=== PATIENT | male | born 1945 | race Caucasian/White ===

== ENCOUNTER 2016-10-01 09:43 | Observation (INO) ==
[2016-10-01] MEDS ORDERED: NITROGLYCERIN SL 0.4 MG TABLET SL PRN (10:03)
[2016-10-01] MEDS ORDERED: ENOXAPARIN 100 MG/ML SYRINGE SUBCUT STA (10:03)
--- NOTE | 2016-10-01 10:06 | EKG Report ---
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
[2016-10-01] MEDS ORDERED: ENOXAPARIN 80 MG/0.8 ML SYRINGE SUBCUT ONE (10:17)
[2016-10-01 10:24] LABS: Basophils % 0.3 % (0.0-0.8); Eosinophils % 0.1 % (0.00-10.9); Hemoglobin 14.9 GM/DL (14.0-18.0); Immature Granulocytes % 0.4 %; Immature Granulocytes Absolute 0.03 #; Lymphocytes % 13.1 % (21.2-54.2); Mean Corpuscular HGB Conc 35.5 GM/DL (32-36); Mean Corpuscular Hemoglobin 33 PG (27-34); Mean Corpuscular Volume 91.7 FL (87-102); Mean Platelet Volume 9.5 FL (9.6-12.0); Monocytes # 0.6 10*3/uL (0.11-0.8); Monocytes % 7.3 % (1.7-12.7); Neutrophils # 5.9 10*3/uL (1.4-7.4); Neutrophils % 78.8 % (38.7-73.9); Platelet Count 181 T/CUMM (130-400); Red Blood Count 4.58 MC/CUMM (3.8-5.5); Red Cell Distribution Width 12.6 % (9.3-17.3); White Blood Count 7.5 T/CUMM (4-12)
--- NOTE | 2016-10-01 10:27 | XRay Report ---
History: Chest pain Date: 10/01/2016 Study: Chest x-ray PA and lateral Comparison exam: July 25, 2007 The cardiac silhouette is not enlarged. There is no mediastinal mass. There has been previous median sternotomy. The pulmonary vasculature is not engorged. The lungs are well-expanded and clear. There is no pleural effusion. There has been previous anterior cervical fusion. The osseous structures are unchanged. Impression: No acute cardiopulmonary process compared to the previous study PROCEDURE INTERPRETED AT [facility] DEPARTMENT OF RADIOLOGY Final Report Signed by: Dr. Julianne Ng
[2016-10-01 11:04] LABS: Albumin 3.9 G/DL (3.4-5.0); Bilirubin,Total 0.5 MG/DL (0.2-1.0); Calcium 8.6 MG/DL (8.5-10.1); Magnesium 2.3 MG/DL (1.8-2.4); Potassium 4.5 MMOL/L (3.5-5.1); Total Protein 6.8 G/DL (6.4-8.3)
[2016-10-01] MEDS ORDERED: NITROGLYCERIN 2% OINT 1 INCH/GM PACK TOP STA (11:07)
[2016-10-01] MEDS ORDERED: NITROGLYCERIN 2% OINT 1 INCH/GM PACK TOP ONE (11:08)
[2016-10-01 11:24] LABS: Apearance,Urine CLEAR (Clear); Bacteria,Urine Occasional /HPF (Few); Bilirubin,Urine Negative (Negative); Blood, Urine Negative (Negative); Glucose,Urine (UA) >=500 mg/dL (Negative); Ketones,Urine Negative (Negative); Mucus,Urine Occasional /LPF (Occasional); Nitrite,Urine Negative (Negative); Protein,Urine Negative; RBC,Urine 1 /HPF (0-4); Sperm,Urine Occasional /HPF (Negative); Urine Color Yellow (Yellow); Urine Specific Gravity 1.021 (1.001-1.035); Urine Urobilinogen < 2.0 EU/DL (0.2-1.0); WBC,Urine 1 /HPF (0-6)
[2016-10-01] MEDS ORDERED: MAGNESIUM SULF RIDER 4 GM in PREMIX 1 EACH IV PRN ×2 (11:27→12:12)
[2016-10-01] MEDS ORDERED: MAGNESIUM SULF RIDER 2 GM in PREMIX 1 EACH IV PRN ×2 (11:27→12:12)
--- NOTE | 2016-10-01 11:30 | Emergency Department Note ---
Ravi Tuttle Brittany, am scribing for, and in the presence of, Jose Juan Iniguez MD 10:09. Hira Tuttle Phillip K, MD, personally performed the services described in this documentation, ascribed by Stephany Rodrigues in my presence, and it is both accurate and complete . Arrival - Arrival Chief Complaint: Chest Pain Stated Complaint: HEART ISSUES/DULL ACHE SENSATION ED Nursing Triage Note: C/o left side chest pressure/ache and indigestion-onset three days ago. Denies SOB. +nausea. Mode of Arrival: Ambulatory Limitations: No Limitations Source: Patient - History of Present Illness HPI Narrative: This is a 70 y/o white male,who presents to the ED with c/o CP which started 3 days ago. He describes the pain as a "chest cold" kind of type/ kind of like indigestion. . He reports the chest pain comes and goes. He reports chills on and off as well as a subjective low grade fever. He states he has been nauseated but has not vomited. He denies any diaphoresis. His states pt has been confused for the past month, more than normal. Pt reports body aches now in the ED. Pt has no other complaints/pain in the ED at this time. Pt has a PMHx of CAD, VA, and dyslipidemia. Pt has had a cardiac cath with no stents and a triple bypass in 2007. Pt has a family medical hx of heart disease. Pt denies a social Hx. Pt's states his last treadmill was in the past year. Onset (ago): day(s) (Started 3 days ago) Consistency: constant Severity: moderate Quality: other (Indegsetion type of pain ) Allergies/Adverse Reactions: Allergies Allergy/AdvReac Type Severity Reaction Status Date / Time No Known Allergies Allergy Verified 10/01/16 09:50 Home Medications: Home Medications Medication Instructions Recorded Confirmed Type Aspirin EC Tab 325 mg PO DAILY 10/01/16 10/01/16 History [place]-3/Dha/Epa/Fish Oil [Fish Oil 1 each PO DAILY 10/01/16 10/01/16 History 1,000 mg Softgel] Rosuvastatin [Crestor] 20 mg PO DAILY 10/01/16 10/01/16 History Ubidecarenone [Co Q-10] 200 mg PO DAILY 10/01/16 10/01/16 History Review of System - Review of System 12 point system: reviewed and no additional remarkable complaints except as stated - Review of System Constitutional: Present: chills, fever (Subjective low grade fever), other ( Body aches) Cardiovascular: Present: chest pain Gastrointestinal: Present: nausea. Absent: vomiting Neurological: Present: confusion Medical,Surgical,& Family Hx - Medical History Cardio: History of: CAD, VA (NSTEMI) Endocrine: History of: Dyslipidemia - Surgical History Cardiac Surgeries: Sugical HX of: Cardiac Catheterization, Cardiac Surgery ( triple bypass 2007) - Family History Family History: Reports;: Family Heart Disease - Social History Smoking Status: Never smoker Frequency of Alcohol Use: None Type of Drug Use: None Exam Vital Signs: Vital Signs Temperature 98.2 F 10/01/16 10:13 Pulse Rate 75 10/01/16 10:13 Respiratory Rate 18 10/01/16 10:13 Blood Pressure 163/98 10/01/16 10:13 O2 Sat by Pulse Oximetry 98 10/01/16 09:46 - General General appearance: alert, in no apparent distress - Head Head exam: Present: atraumatic, normocephalic, normal inspection - Eye Eye exam: Present: normal appearance, PERRL, EOMI. Absent: nystagmus, miosis, mydriasis - ENT ENT exam: Present: normal exam, normal oropharynx, mucous membranes moist, TM's normal bilaterally, normal external ear exam - Neck Neck exam: Present: normal inspection, full ROM, trachea midline. Absent: tenderness, meningismus, lymphadenopathy, thyromegaly - Chest Chest inspection: Present: normal inspection, symmetric chest wall rise. Absent : tenderness, rash, abscess - Respiratory Respiratory exam: Present: normal lung sounds bilaterally. Absent: rales, respiratory distress, rhonchi, stridor, wheezes - Cardiovascular Cardiovascular exam: Present: regular rate, normal rhythm, normal heart sounds. Absent: murmur, rubs, gallop, clicks, JVD - Abdominal Exam Abdominal exam: Present: soft, normal bowel sounds. Absent: distention, tenderness, guarding, rebound, rigidity - Rectal Exam Rectal exam: Present: deferred - Extremities Exam Extremities exam: Present: normal inspection, full ROM, normal capillary refill. Absent: tenderness, pedal edema, joint swelling, calf tenderness - Back Exam Back exam: Present: normal inspection, full ROM. Absent: tenderness, muscle spasm, rashes - Neurological Exam Neurological exam: Present: alert, oriented X3, CN II-XII intact. Absent: motor sensory deficit - Psychiatric Psychiatric exam: Present: normal affect, normal mood, flat affect. Absent: depressed, agitated, anxious, manic - Skin Skin exam: Present: warm, dry, intact, normal color. Absent: rash, cyanosis, diaphoresis, erythema, pallor, mottled Results - Labs CBC & BMP: 10/01/16 10:07 10/01/16 10:07 Lab Results: I have reviewed the patients labs Labs: Laboratory Tests 10/01/16 10:07 WBC 7.5 RBC 4.58 Hgb 14.9 Hct 42.0 MCV 91.7 MCH 33 MCHC 35.5 RDW 12.6 Plt Count 181 MPV 9.5 L Neut % (Auto) 78.8 H Lymph % (Auto) 13.1 L [place] % (Auto) 7.3 Eos % (Auto) 0.1 Baso % (Auto) 0.3 Neut # (Auto) 5.9 Lymph # (Auto) 1.0 L [place] # (Auto) 0.6 Eos # (Auto) 0.0 Baso # (Auto) 0.0 Immature Gran % 0.4 Nucleated RBC % 0.0 Immature Gran # 0.03 Nucleated RBCs # 0.00 - EKG EKG results: interpreted by ERMD, sinus rhythm (No ST elevation noted) - Diagnostic Findings Procedure: Chest x-ray: report reviewed by me (Nothing acute when compared to the previous study. ), CT: report reviewed by me (CT head scan is negative) Disposition Clinical Impression: Chest pain, Confusion, Hyperglycemia Clinical Impression: (Ruled Out): No ST elevation noted. Case discussed with: patient, patient's family Disposition: Still a Patient Condition: Guarded Additional Instructions: Admit to Dr. Brown
--- NOTE | 2016-10-01 12:05 | CT Report ---
History: Confusion Date: 10/01/2016 Study: CT head without contrast Comparison exam: January 09, [address] sections were obtained through the head without IV contrast. This CT exam was performed using one or more the following dose reduction techniques: Automated exposure control, adjustment of the MA and/or KV according to patient size, or use of iterative reconstruction technique. The ventricles are midline in position without evidence of hydrocephalus. There is no mass or parenchymal hemorrhage. There is no gross CT evidence of acute cortical stroke. There is no extra-axial hematoma. There is a small amount of ill-defined low density in the periventricular white matter without mass effect compatible with changes of small vessel disease. There is no acute abnormality of the calvarium. Impression: No acute intracranial process. No adverse interval change PROCEDURE INTERPRETED AT [facility] DEPARTMENT OF RADIOLOGY Final Report Signed by: Dr. Julianne Ng
[2016-10-01] MEDS ORDERED: DOCUSATE SODIUM 100 MG CAPSULE PO PRN (12:12)
[2016-10-01] MEDS ORDERED: traZODone 50 MG TABLET PO PRN (12:12)
[2016-10-01] MEDS ORDERED: ACETAMINOPHEN 325 MG TABLET PO PRN (12:12)
[2016-10-01] MEDS ORDERED: ONDANSETRON 4 MG/2 ML VIAL IV PRN (12:12)
[2016-10-01] MEDS ORDERED: BISACODYL 5 MG TABLET PO PRN (12:12)
[2016-10-01] MEDS ORDERED: POTASSIUM CHLORIDE RIDER 20 MEQ in PREMIX 1 EACH IV PRN (12:16)
[2016-10-01] MEDS ORDERED: POTASSIUM CHLORIDE RIDER 10 MEQ in PREMIX 1 EACH IV PRN (12:16)
[2016-10-01] MEDS ORDERED: ACETAMINOPHEN 500 MG TABLET PO STA (12:34)
[2016-10-01] MEDS ORDERED: ACETAMINOPHEN 500 MG TABLET ONE (12:34)
--- NOTE | 2016-10-01 13:21 | EKG Report ---
Stationary ECG Study [facility] ER Test Date: 10/01/2016 1:20:22 PM Pat Name: ORTEGA REAL [facility] Gender: M Operating Room Orderly: : 1945 Requested by: Jose Juan Nina Order Number: [id number] Reading MD: SABRINA MARINA Intervals [place] Rate: 73 P: 55 SC: 182 QRS: 57 QRSD: 91 T: 62 QT: 384 QTc: 409 Interpretive Statements SINUS RHYTHM LEFT ATRIAL ABNORMALITY Electronically Signed On 10-03-16 12:15:36 CDT by SABRINA MARINA [email or web address]
[2016-10-01 14:19] LABS: Troponin I Only < 0.015 NG/ML (0.00-0.045)
[2016-10-01] MEDS: OMEGA 3 ACID ETHYL ESTERS 1 GM CAPSULE PO SCH ×2 (14:37→15:12)
[2016-10-01] MEDS: SODIUM CHLORIDE 0.45% 1,000 ML IV SCH (14:37)
[2016-10-01] MEDS: ROSUVASTATIN 20 MG TABLET PO SCH ×2 (14:37→15:11)
[2016-10-01] MEDS: CARVEDILOL 3.125 MG TABLET PO SCH ×2 (14:57→20:58)
--- NOTE | 2016-10-01 15:08 | Cardiology History & Physical ---
<Niyah Alexander - Last Filed: 10/01/16 14:49> Assessment and Plan - Time spent with patient Time spent with patient: Greater than 30 minutes History of Present Illness Chief complaint: chest discomfort History of present illness: [employer] Instructor: Dr. Collazo Mr. Jensen is a 70 year old male with known history of coronary artery disease, routinely followed by Dr. Collazo. Cardiac risk factors include: Known CAD, dyslipidemia, family history of coronary artery disease (father) and hypertension. Lifetime non-smoker. Patient has past medical history of previous [place] (silent). Patient is status post coronary artery bypass grafting in 2007 with WALTON to LAD, SVG to circumflex and SVG to diagonal. Patient was just recently seen in the cardiology clinic by Dr. Collazo June 2016. At that time, he underwent GXT stress test and echocardiogram. He tolerated stress testing well and completed 4 minutes and 51 seconds. 10.5 metastases. Reached 91% of maximum predicted heart rate. Heart rate and blood pressure response was normal. He did not develop any symptoms during the procedure. No ST segment changes or arrhythmias were noted. Unable to locate echocardiogram report. Of note, per Dr. Collazo's note prior to his bypass surgery he was totally asymptomatic with the exception of just a little episode of shortness of breath one time. He continues to be extremely active. Walks 2 miles and then is able to jog 12:45 half of a mile. He works in his yard on a regular basis and is able to perform activities without limitations. Patient presented to [facility] today seeking further evaluation. He reports that he just woke up this morning and "did not feel right." He reports that he has been at the [facility] for the last several days. He has had intermittent episodes of "feeling flushed in his chest." He denies jatin chest pain, heaviness and tightness. However, he reports that he has never experienced chest pain. Prior to his bypass surgery the only symptom that he experienced was brief shortness of breath. Unable to identify if he was short of breath. While obtaining a review of systems, patient suddenly became extremely anxious because he could not remember why he came to the hospital. His is at the bedside. Majority of information obtained from her. She reports that he has been intermittently confused over the past several weeks. This comes and goes and he is aware of his confusion. She reports that he commonly forgets which cabinet the plates, cups and silverware are located in. While carrying on on a conversation, he he randomly says words that do not fit into the conversation. Patient then became very anxious and reporting that something was bad wrong with him. However, he could not tell me what was wrong. His confirms that he has complained of occasional headaches. His blood pressure has been uncontrolled as well. He is admitted to the telemetry unit. Patient was seen and examined on the telemetry unit. He is without chest pain, heaviness and tightness. Cardiac biomarkers have been negative 2. EKG is unchanged from previous tracings. Patient's chief complaint seems to be change in his mental status. At this point, we will order MRI brain carotid ultrasound , blood cultures and UA. Consult Dr. Lara. Await additional recommendations from Dr. Brown. ASSESSMENT/PLAN CHANGE IN MENTAL STATUS - Head CT negative. Will order MRI brain carotid ultrasound, blood cultures and UA. Consult Dr. Lara. HISTORY OF CAD - Patient has history of CAD with CABG in 2007. WALTON to LAD, SVG to circumflex and SVG to diagonal. Patient undergoes exercise stress test yearly. Last stress test performed June 2016. He tolerated that well without any ST segment changes concerning for ischemia. Will cycle cardiac biomarkers and EKGs. Echocardiogram pending. HYPERTENSION - Beta-donato has been initiated. Will monitor blood pressure and adjust accordingly. HYPERLIPIDEMIA - Continue lipid-lowering agent. Lipid panel in a.m. Home Medications Medication Instructions Recorded Confirmed Type Aspirin EC Tab 325 mg PO DAILY 10/01/16 10/01/16 History [place]-3/Dha/Epa/Fish Oil [Fish Oil 1 each PO DAILY 10/01/16 10/01/16 History 1,000 mg Softgel] Rosuvastatin [Crestor] 20 mg PO DAILY 10/01/16 10/01/16 History Ubidecarenone [Co Q-10] 200 mg PO DAILY 10/01/16 10/01/16 History Allergies Allergy/AdvReac Type Severity Reaction Status Date / Time No Known Allergies Allergy Verified 10/01/16 09:50 ROS unobtainable: due to dementia Medical,Surgical,& Family Hx - Medical History Cardio: History of: CAD, WI (NSTEMI) Endocrine: History of: Dyslipidemia - Surgical History Cardiac Surgeries: Sugical HX of: Cardiac Catheterization, Cardiac Surgery ( triple bypass 2007) - Family History Family History: Reports;: Family Heart Disease - Social History Smoking Status: Never smoker Frequency of Alcohol Use: None Type of Drug Use: None Marital Status: Lives With:: Spouse Functional capacity: independent ambulation Cardiology Physical Exam - Constitutional Vitals: Vital Signs Temp Pulse Resp BP Pulse Ox 98.1 F 66 17 142/74 97 10/01/16 14:28 10/01/16 14:28 10/01/16 14:28 10/01/16 14:28 10/01/16 14:28 Intake and Output 09/30/16 10/01/16 10/01/16 22:59 06:59 14:59 Other: Weight 182 lb Patient Weight 10/02/16 06:59 Weight 182 lb Exam: General: Appears well with no apparent distress. Pleasant and cooperative. Appears comfortable. HEENT: PERRL, normocephalic, atraumatic. Mucous membranes moist. No jaundice noted. Conjunctiva moist and clear, sclerae anicteric Neck: No JVD/HJR, no thyromegaly or lymphadenopathy noted. No carotid bruit appreciated Cardiac: Regular rate and rhythm. No murmur rub or gallop. Lungs: Clear to auscultation without accessory muscle use to assist the respiratory pattern. Not requiring oxygen. Abdomen: Soft, bowel sounds normoactive. Nontender and nondistended. No abdominal bruit or thrill noted. No masses noted. Extremities: No clubbing, cyanosis noted. No edema noted. Upper extremity pulses 2+. Lower extremity pulses 2+. Capillary refill less than 3 seconds. Skin: No unusual lesions or rashes. No skin breakdown appreciated. Neuro: Awake, alert and oriented 3. Moves all extremities well without hemiparesis or paralysis. No essential tremor is appreciated. Result/EKG - Labs CBC & BMP: 10/01/16 10:07 10/01/16 10:07 Lab Results: I have reviewed the past 24 hour labs Labs: Laboratory Results - last 24 hr 10/01/16 10/01/16 10/01/16 10:07 10:07 10:07 WBC 7.5 RBC 4.58 Hgb 14.9 Hct 42.0 MCV 91.7 MCH 33 MCHC 35.5 RDW 12.6 Plt Count 181 MPV 9.5 L Neut % (Auto) 78.8 H Lymph % (Auto) 13.1 L [place] % (Auto) 7.3 Eos % (Auto) 0.1 Baso % (Auto) 0.3 Neut # (Auto) 5.9 Lymph # (Auto) 1.0 L [place] # (Auto) 0.6 Eos # (Auto) 0.0 Baso # (Auto) 0.0 Immature Gran % 0.4 Nucleated RBC % 0.0 Immature Gran # 0.03 Nucleated RBCs # 0.00 Sodium 136 Potassium 4.5 Chloride 98 Carbon Dioxide 33 H Anion Gap 9.5 BUN 14 Creatinine 1.00 GFR Calculation 92 BUN/Creatinine Ratio 14.00 Glucose 199 H Calculated Osmolality 278.0 Calcium 8.6 Magnesium 2.3 Total Bilirubin 0.50 AST 15 ALT 18 Alkaline Phosphatase 55 Total Creatine Kinase CK-MB (CK-2) Troponin I Total Protein 6.8 Albumin 3.9 Globulin 2.9 Albumin/Globulin Ratio 1.3 Lipase 184.0 Free T4 TSH 3rd Generation Urine Color Yellow Urine Appearance Clear Urine pH 6.0 Ur Specific [place] 1.021 Urine Protein Negative Urine Glucose (UA) >=500 Urine Ketones Negative Urine Blood Negative Urine Nitrate Negative Urine Bilirubin Negative Urine Urobilinogen < 2.0 H Urine Leukocytes Negative Urine RBC 1 Urine WBC 1 Urine Bacteria Occasional Urine Mucus Occasional Urine Sperm Occasional Ur Culture Indicated? Not indicated 10/01/16 10/01/16 10/01/16 10:07 10:07 10:07 WBC RBC Hgb Hct MCV MCH MCHC RDW Plt Count MPV Neut % (Auto) Lymph % (Auto) [place] % (Auto) Eos % (Auto) Baso % (Auto) Neut # (Auto) Lymph # (Auto) [place] # (Auto) Eos # (Auto) Baso # (Auto) Immature Gran % Nucleated RBC % Immature Gran # Nucleated RBCs # Sodium Potassium Chloride Carbon Dioxide Anion Gap BUN Creatinine GFR Calculation BUN/Creatinine Ratio Glucose Calculated Osmolality Calcium Magnesium Total Bilirubin AST ALT Alkaline Phosphatase Total Creatine Kinase CK-MB (CK-2) Troponin I 0.017 Total Protein Albumin Globulin Albumin/Globulin Ratio Lipase Free T4 0.90 TSH 3rd Generation 5.280 H Urine Color Urine Appearance Urine pH Ur Specific [place] Urine Protein Urine Glucose (UA) Urine Ketones Urine Blood Urine Nitrate Urine Bilirubin Urine Urobilinogen Urine Leukocytes Urine RBC Urine WBC Urine Bacteria Urine Mucus Urine Sperm Ur Culture Indicated? 10/01/16 13:30 WBC RBC Hgb Hct MCV MCH MCHC RDW Plt Count MPV Neut % (Auto) Lymph % (Auto) [place] % (Auto) Eos % (Auto) Baso % (Auto) Neut # (Auto) Lymph # (Auto) [place] # (Auto) Eos # (Auto) Baso # (Auto) Immature Gran % Nucleated RBC % Immature Gran # Nucleated RBCs # Sodium Potassium Chloride Carbon Dioxide Anion Gap BUN Creatinine GFR Calculation BUN/Creatinine Ratio Glucose Calculated Osmolality Calcium Magnesium Total Bilirubin AST ALT Alkaline Phosphatase Total Creatine Kinase 87 CK-MB (CK-2) 3.1 Troponin I < 0.015 Total Protein Albumin Globulin Albumin/Globulin Ratio Lipase Free T4 TSH 3rd Generation Urine Color Urine Appearance Urine pH Ur Specific [place] Urine Protein Urine Glucose (UA) Urine Ketones Urine Blood Urine Nitrate Urine Bilirubin Urine Urobilinogen Urine Leukocytes Urine RBC Urine WBC Urine Bacteria Urine Mucus Urine Sperm Ur Culture Indicated? <StephaniePapo - Last Filed: 10/01/16 15:39> History of Present Illness History of present illness: Cardiology addendum. Patient examined chart reviewed and discussed with nurse Moraima Rose RN 70-year-old but Angelica has had intermittent confusion for about 2 weeks according to his Argelia Olga Morales who is a nurse in the outpatient center. Today the patient cannot express his words. He did not know the president or the month. CT the head was negative for stroke. He has no motor deficits. Chest x-ray is negative. Status post 3 vessel CABG in 2007 with WALTON graft to LAD, vein graft to circumflex and vein graft to diagonal. He had a normal treadmill stress test June 25, 2016. He completed 10.5 metastases and a peak heart of 137 without chest pain or EKG changes or arrhythmias. The patient stopped his aspirin 1 week ago because of nausea. He also takes Crestor 20 mg daily and fish oil. No history of hypertension or diabetes. No prior history of stroke. No history of peptic ulcer disease. He denies melena. 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 He walks at least 3 times per week for 30 minutes. Impression Suspect stroke. MRI of the brain Carotid duplex Echo Doppler Consult Dr. Lara Discussed with [facility] Physical Exam - Constitutional Vitals: Vital Signs Temp Pulse Resp BP Pulse Ox 98.3 F 77 20 164/95 100 10/01/16 15:13 10/01/16 15:13 10/01/16 15:13 10/01/16 15:13 10/01/16 15:13 Intake and Output 09/30/16 10/01/16 10/01/16 23:59 07:59 15:59 Other: Weight 82.554 kg Patient Weight 10/01/16 23:59 Weight 82.554 kg Result/EKG - Labs CBC & BMP: 10/01/16 10:07 10/01/16 10:07 Labs: Laboratory Results - last 24 hr 10/01/16 10/01/16 10/01/16 10:07 10:07 10:07 WBC 7.5 RBC 4.58 Hgb 14.9 Hct 42.0 MCV 91.7 MCH 33 MCHC 35.5 RDW 12.6 Plt Count 181 MPV 9.5 L Neut % (Auto) 78.8 H Lymph % (Auto) 13.1 L [place] % (Auto) 7.3 Eos % (Auto) 0.1 Baso % (Auto) 0.3 Neut # (Auto) 5.9 Lymph # (Auto) 1.0 L [place] # (Auto) 0.6 Eos # (Auto) 0.0 Baso # (Auto) 0.0 Immature Gran % 0.4 Nucleated RBC % 0.0 Immature Gran # 0.03 Nucleated RBCs # 0.00 Sodium 136 Potassium 4.5 Chloride 98 Carbon Dioxide 33 H Anion Gap 9.5 BUN 14 Creatinine 1.00 GFR Calculation 92 BUN/Creatinine Ratio 14.00 Glucose 199 H Calculated Osmolality 278.0 Calcium 8.6 Magnesium 2.3 Total Bilirubin 0.50 AST 15 ALT 18 Alkaline Phosphatase 55 Total Creatine Kinase CK-MB (CK-2) Troponin I Total Protein 6.8 Albumin 3.9 Globulin 2.9 Albumin/Globulin Ratio 1.3 Lipase 184.0 Free T4 TSH 3rd Generation Urine Color Yellow Urine Appearance Clear Urine pH 6.0 Ur Specific [place] 1.021 Urine Protein Negative Urine Glucose (UA) >=500 Urine Ketones Negative Urine Blood Negative Urine Nitrate Negative Urine Bilirubin Negative Urine Urobilinogen < 2.0 H Urine Leukocytes Negative Urine RBC 1 Urine WBC 1 Urine Bacteria Occasional Urine Mucus Occasional Urine Sperm Occasional Ur Culture Indicated? Not indicated 10/01/16 10/01/16 10/01/16 10:07 10:07 10:07 WBC RBC Hgb Hct MCV MCH MCHC RDW Plt Count MPV Neut % (Auto) Lymph % (Auto) [place] % (Auto) Eos % (Auto) Baso % (Auto) Neut # (Auto) Lymph # (Auto) [place] # (Auto) Eos # (Auto) Baso # (Auto) Immature Gran % Nucleated RBC % Immature Gran # Nucleated RBCs # Sodium Potassium Chloride Carbon Dioxide Anion Gap BUN Creatinine GFR Calculation BUN/Creatinine Ratio Glucose Calculated Osmolality Calcium Magnesium Total Bilirubin AST ALT Alkaline Phosphatase Total Creatine Kinase CK-MB (CK-2) Troponin I 0.017 Total Protein Albumin Globulin Albumin/Globulin Ratio Lipase Free T4 0.90 TSH 3rd Generation 5.280 H Urine Color Urine Appearance Urine pH Ur Specific [place] Urine Protein Urine Glucose (UA) Urine Ketones Urine Blood Urine Nitrate Urine Bilirubin Urine Urobilinogen Urine Leukocytes Urine RBC Urine WBC Urine Bacteria Urine Mucus Urine Sperm Ur Culture Indicated? 10/01/16 13:30 WBC RBC Hgb Hct MCV MCH MCHC RDW Plt Count MPV Neut % (Auto) Lymph % (Auto) [place] % (Auto) Eos % (Auto) Baso % (Auto) Neut # (Auto) Lymph # (Auto) [place] # (Auto) Eos # (Auto) Baso # (Auto) Immature Gran % Nucleated RBC % Immature Gran # Nucleated RBCs # Sodium Potassium Chloride Carbon Dioxide Anion Gap BUN Creatinine GFR Calculation BUN/Creatinine Ratio Glucose Calculated Osmolality Calcium Magnesium Total Bilirubin AST ALT Alkaline Phosphatase Total Creatine Kinase 87 CK-MB (CK-2) 3.1 Troponin I < 0.015 Total Protein Albumin Globulin Albumin/Globulin Ratio Lipase Free T4 TSH 3rd Generation Urine Color Urine Appearance Urine pH Ur Specific [place] Urine Protein Urine Glucose (UA) Urine Ketones Urine Blood Urine Nitrate Urine Bilirubin Urine Urobilinogen Urine Leukocytes Urine RBC Urine WBC Urine Bacteria Urine Mucus Urine Sperm Ur Culture Indicated?
--- NOTE | 2016-10-01 16:17 | Neurology Consult Note ---
History of Present Illness History of present illness: Mr. Jensen is a 70 year old right-handed white gentleman with past medical history significant for coronary artery disease routinely followed by Dr. Collazo, dyslipidemia, family history of coronary artery disease (father) and hypertension, previous ND (silent), status post coronary artery bypass grafting in 2007 with. Patient was just recently seen in the cardiology clinic by Dr. Collazo June 2016. At that time, he underwent GXT stress test and echocardiogram. He tolerated stress testing well. Patient presented to [facility] today seeking further evaluation for confusion and difficulty in expressing himself. He reports that he just woke up this morning and "did not feel right." He reports that he has been at the [facility] for the last several days. He has had intermittent episodes of "feeling flushed in his chest." His is at the bedside and majority of information obtained from her. She reports that he has been intermittently confused over the past several weeks. This comes and goes and he is aware of his confusion. She reports that he commonly forgets which cabinet the plates, cups and silverware are located in. While carrying on on a conversation, he he randomly says words that do not fit into the conversation. Patient then became very anxious and reporting that something was bad wrong with him. However, he could not tell me what was wrong. His confirms that he has complained of occasional headaches. His blood pressure has been uncontrolled as well. CT of the head is unremarkable. Home Medications Medication Instructions Recorded Confirmed Type Aspirin EC Tab 325 mg PO DAILY 10/01/16 10/01/16 History Nunn-3/Dha/Epa/Fish Oil [Fish Oil 1 each PO DAILY 10/01/16 10/01/16 History 1,000 mg Softgel] Rosuvastatin [Crestor] 20 mg PO DAILY 10/01/16 10/01/16 History Ubidecarenone [Co Q-10] 200 mg PO DAILY 10/01/16 10/01/16 History Allergies Allergy/AdvReac Type Severity Reaction Status Date / Time No Known Allergies Allergy Verified 10/01/16 09:50 12 point system: reviewed and no additional remarkable complaints except as stated Medical,Surgical,& Family Hx - Medical History Cardio: History of: CAD, ND (NSTEMI) Endocrine: History of: Dyslipidemia - Surgical History Cardiac Surgeries: Sugical HX of: Cardiac Catheterization, Cardiac Surgery ( triple bypass 2007) - Family History Family History: Reports;: Family Heart Disease - Social History Smoking Status: Never smoker Frequency of Alcohol Use: None Type of Drug Use: None Exam - Constitutional Vitals: Period Temp Pulse Resp BP Sys/Friedman Pulse Ox Last 24 Hr 98.1 F-98.3 F 66-77 17-20 142-164/74-98 97-100 Exam: GENERAL: Patient is in no acute distress. NECK: Neck is supple. There is no JVD. No carotid bruits present. No thyroid masses. CVS: First and second heart sounds are normal. There is no S3 present. Regular rate and rhythm. RESPIRATORY: Lungs are clear to auscultation without any rales or rhonchi. ABDOMEN: Soft and non-tender. Bowel sounds are present. There is no hepatosplenomegaly. EXT: There is no palpable edema. Peripheral pulses are present. Skin: No rashes Central Nervous system: General: Alert, awake and Oriented x 3 Speech: Fluent Comprehension: Fair. Some issue with comprehension Facial expressions: Normal Cranial Nerves: CN1/Olfactory: Normal CN II/ Optic: Normal, Visual Smith unreliable CN III, and : NIKKI & EOMI CN V: Normal & intact CN VII: face is symmetric CNVIII: Normal CN XI/X/XI/XII: Intact and Normal Motor: Bulk and Tone is normal. Strength in the right 5/5 Strength in the left 5/5 Sensory: Grossly intact for all the modalities of PP, LT and temp sense Reflexes: 1+ and symmetrical Cerebellar function: Normal finger to nose and heel to fierro testing. Toes: Equivocal Gait: Normal heel to heel and toe to toe and tandem walk. Results - Labs CBC & BMP: 10/01/16 10:07 10/01/16 10:07 Assessment and Plan (1) Change in mental status Status: Acute Assessment and plan: Differential would include parietal lobe stroke, infectious etiology, medication side effects etc. Agree with MRI of the brain Start and continue aspirin a day for now We might decide to do LP if MRI comes back negative. Thank you for the consult Current Visit: Yes
--- NOTE | 2016-10-01 17:51 | Magnetic Resonance Report ---
MRI brain without and with contrast Indication: Confusion Comparison: None available Technique: Axial sagittal and coronal imaging of the brain is performed without and with intravenous contrast. T1, T2, FLAIR and diffusion weighted sequences are performed. Contrast dose is 17 cc Dotarem. Findings: No evidence of restricted diffusion seen. No evidence of intracranial hemorrhage, mass, mass effect or midline shift is seen. There is mild diffuse cerebral atrophy. Otherwise the brain parenchyma has normal signal and differentiation. The ventricles and cisterns are appropriate in caliber. Posterior fossa, mid brain and pituitary gland appear within normal limits. No evidence of cranial or skull base abnormality seen. No areas of abnormal enhancement are present on the postcontrast images when compared to the precontrast study Impression: No evidence of abnormality demonstrated PROCEDURE INTERPRETED AT [facility] DEPARTMENT OF RADIOLOGY Final Report Signed by: Dr. William Borja
[2016-10-01 18:16] LABS: Apearance,Urine CLEAR (Clear); Bilirubin,Urine Negative (Negative); Blood, Urine Negative (Negative); Glucose,Urine (UA) 50 mg/dL (Negative); Ketones,Urine Negative (Negative); Mucus,Urine Occasional /LPF (Occasional); Nitrite,Urine Negative (Negative); Protein,Urine Negative; RBC,Urine 1 /HPF (0-4); Urine Color Straw (Yellow); Urine Specific Gravity 1.013 (1.001-1.035); Urine Urobilinogen < 2.0 EU/DL (0.2-1.0); WBC,Urine <1 /HPF (0-6)
--- NOTE | 2016-10-01 19:29 | Ultrasound Report ---
Carotid artery ultrasound Indication: Change of mental status Comparison: None available Color Doppler flow and spectral analysis was performed. Findings: Small amount of atherosclerotic plaque is present in both proximal internal carotid arteries. Right peak systolic velocity: Right CCA:88.6 Right proximal Internal Carotid Artery is 88.5 cm/s. Ratio of flow is 1.0 Right distal Internal Carotid is 65.1 cm/s . Left peak systolic velocity: Left CCA:87.2 Left proximal Internal carotid Artery is 63.7 cm/s . Ratio of flow is 0.7 Left distal Internal carotid Artery is 61.1cm/s Bilateral antegrade vertebral flow is seen. Impression: No evidence of hemodynamically significant stenosis is seen, 0-49% estimated stenosis. Consensus conference on the carotid ultrasound criteria used. Ultrasound images were captured and stored. PROCEDURE INTERPRETED AT [facility] DEPARTMENT OF RADIOLOGY Final Report Signed by: Dr. William Borja
[2016-10-01 22:40] LABS: Troponin I Only < 0.015 NG/ML (0.00-0.045)
[2016-10-02 04:43] LABS: Basophils % 0.2 % (0.0-0.8); Eosinophils % 0.2 % (0.00-10.9); Hematocrit 42.1 VOL% (42.0-52.0); Immature Granulocytes % 0.4 %; Immature Granulocytes Absolute 0.03 #; Lymphocytes # 1.5 10*3/uL (1.4-4.0); Mean Corpuscular HGB Conc 35.6 GM/DL (32-36); Mean Corpuscular Hemoglobin 32 PG (27-34); Mean Corpuscular Volume 89.8 FL (87-102); Monocytes # 0.9 10*3/uL (0.11-0.8); Monocytes % 9.9 % (1.7-12.7); Neutrophils # 6.2 10*3/uL (1.4-7.4); Neutrophils % 72.3 % (38.7-73.9); Platelet Count 183 T/CUMM (130-400); Red Blood Count 4.69 MC/CUMM (3.8-5.5); Red Cell Distribution Width 12.5 % (9.3-17.3); White Blood Count 8.6 T/CUMM (4-12)
[2016-10-02 05:12] LABS: Albumin 3.7 G/DL (3.4-5.0); Bilirubin,Total 0.8 MG/DL (0.2-1.0); Calcium 9.1 MG/DL (8.5-10.1); Magnesium 2.3 MG/DL (1.8-2.4); Osmolality,Calculated 273.8 MOS/KG (273-304); Potassium 4.4 MMOL/L (3.5-5.1); Risk Ratio 2.5; Total Protein 6.5 G/DL (6.4-8.3)
[2016-10-02 05:54] LABS: Troponin I Only < 0.015 NG/ML (0.00-0.045)
[2016-10-02] MEDS: SODIUM CHLORIDE 0.45% 1,000 ML IV SCH ×2 (06:48)
[2016-10-02] MEDS ORDERED: CARVEDILOL 6.25 MG TABLET PO SCH (08:17)
[2016-10-02] MEDS ORDERED: ENOXAPARIN 40 MG/0.4 ML SYRINGE SUBCUT SCH (08:30)
--- NOTE | 2016-10-02 08:38 | Cardiology Progress Note ---
<Niyah Alexander - Last Filed: 10/02/16 08:30> Assessment and Plan - Time spent with patient Time spent with patient: Greater than 30 minutes (1) Change in mental status Status: Acute Assessment and plan: See plan of care listed below. Current Visit: Yes (2) History of coronary artery disease Status: Chronic Assessment and plan: See plan of care listed below. Current Visit: Yes (3) History of coronary artery bypass graft Status: Chronic Assessment and plan: See plan of care listed below. Current Visit: Yes (4) Hyperlipidemia Status: Chronic Assessment and plan: See plan of care listed below. Current Visit: Yes (5) Hypertension Status: Chronic Assessment and plan: See plan of care listed below. Current Visit: Yes Cardiology - PN: Subj Interval history: Cost Specialist: Dr. Collazo PCP: Dr. Nanny GAMBOA Mr. Jensen is a 70 year old male with known history of coronary artery disease, routinely followed by Dr. Collazo. Cardiac risk factors include: Known CAD, dyslipidemia, family history of coronary artery disease (father) and hypertension. Lifetime non-smoker. Patient has past medical history of previous [place] (silent). Patient is status post coronary artery bypass grafting in 2007 with WALTON to LAD, SVG to circumflex and SVG to diagonal. Patient was just recently seen in the cardiology clinic by Dr. Collazo June 2016. At that time, he underwent GXT stress test and echocardiogram. He tolerated stress testing well and completed 4 minutes and 51 seconds. 10.5 metastases. Reached 91% of maximum predicted heart rate. Heart rate and blood pressure response was normal. He did not develop any symptoms during the procedure. No ST segment changes or arrhythmias were noted. Unable to locate echocardiogram report. OCTOBER 02, 2016 Patient was seen and examined on the telemetry unit. at bedside. He is doing much better this morning and states that he feels back to normal neurologically. Awake and alert. Oriented 3. No weakness. Steady gait. He underwent MRI yesterday which did not reveal any abnormality. Carotid ultrasound did not reveal any evidence of hemodynamically significant stenosis. Blood cultures are pending. A UA negative. No leukocytosis or left shift noted in today's labs. Afebrile. Patient is without complaints of angina. Cardiac biomarkers have been negative 4. EKG is unchanged from previous tracings. He just recently underwent cardiac stress testing in June which was stable. Reports that he walks 2 miles a day and jogs half a mile a day without difficulty. Lipid panel has been reviewed and is overall unremarkable. Blood pressure suboptimally controlled. Will increase beta-blockade. Echocardiogram is pending. Labs been reviewed. I will discuss with Dr. Brown and await his additional recommendations. ASSESSMENT/PLAN CHANGE IN MENTAL STATUS - Improved. MRI yesterday which did not reveal any abnormality. Carotid ultrasound did not reveal any evidence of hemodynamically significant stenosis. Blood cultures are pending. A UA negative. No leukocytosis or left shift noted in today's labs. Afebrile. Consider LP. This could be early dementia. Dr. Lara is following. Appreciate his recommendations. HISTORY OF CAD - Patient has history of CAD with CABG in 2007. WALTON to LAD, SVG to circumflex and SVG to diagonal. Patient undergoes exercise stress test yearly. Last stress test performed June 2016. He tolerated that well without any ST segment changes concerning for ischemia. Patient is without complaints of angina. Cardiac biomarkers have been negative 4. EKG is unchanged from previous tracings. Reports that he walks 2 miles a day and jogs half a mile a day without difficulty. He appears to be stable from a cardiac standpoint. Echocardiogram pending. I will discuss with Dr. Brown and await his additional recommendations. HYPERTENSION - Blood pressure remains suboptimally controlled this morning. I will increase his beta blockade. Continue to monitor and adjust medications as needed. HYPERLIPIDEMIA - Continue lipid-lowering agent. Lipid panel has been reviewed. LDL-75 Exam (Progress Note) - Constitutional Vitals: Period Temp Pulse Resp BP Sys/Friedman Pulse Ox Last 24 Hr 97.3 F-98.8 F 66-77 16-20 128-164/74-98 97-100 Exam: General: Appears well with no apparent distress. Pleasant and cooperative. Appears comfortable. HEENT: PERRL, normocephalic, atraumatic. Mucous membranes moist. No jaundice noted. Conjunctiva moist and clear, sclerae anicteric Neck: No JVD/HJR, no thyromegaly or lymphadenopathy noted. No carotid bruit appreciated Cardiac: Regular rate and rhythm. No murmur rub or gallop. Lungs: Clear to auscultation without accessory muscle use to assist the respiratory pattern. Not requiring oxygen. Abdomen: Soft, bowel sounds normoactive. Nontender and nondistended. No abdominal bruit or thrill noted. No masses noted. Extremities: No clubbing, cyanosis noted. No edema noted. Upper extremity pulses 2+. Lower extremity pulses 2+. Capillary refill less than 3 seconds. Skin: No unusual lesions or rashes. No skin breakdown appreciated. Neuro: Awake, alert and oriented 3. Moves all extremities well without hemiparesis or paralysis. No essential tremor is appreciated. Result/EKG - Labs CBC & BMP: 10/02/16 03:42 10/02/16 03:42 Lab Results: I have reviewed the past 24 hour labs Labs: Laboratory Results - last 24 hr 10/01/16 10/01/16 10/01/16 10:07 10:07 10:07 WBC 7.5 RBC 4.58 Hgb 14.9 Hct 42.0 MCV 91.7 MCH 33 MCHC 35.5 RDW 12.6 Plt Count 181 MPV 9.5 L Neut % (Auto) 78.8 H Lymph % (Auto) 13.1 L [place] % (Auto) 7.3 Eos % (Auto) 0.1 Baso % (Auto) 0.3 Neut # (Auto) 5.9 Lymph # (Auto) 1.0 L [place] # (Auto) 0.6 Eos # (Auto) 0.0 Baso # (Auto) 0.0 Immature Gran % 0.4 Nucleated RBC % 0.0 Immature Gran # 0.03 Nucleated RBCs # 0.00 Immature Plt Fraction Sodium 136 Potassium 4.5 Chloride 98 Carbon Dioxide 33 H Anion Gap 9.5 BUN 14 Creatinine 1.00 GFR Calculation 92 BUN/Creatinine Ratio 14.00 Glucose 199 H Calculated Osmolality 278.0 Calcium 8.6 Magnesium 2.3 Total Bilirubin 0.50 AST 15 ALT 18 Alkaline Phosphatase 55 Total Creatine Kinase CK-MB (CK-2) Troponin I B-Natriuretic Peptide Total Protein 6.8 Albumin 3.9 Globulin 2.9 Albumin/Globulin Ratio 1.3 Triglycerides Cholesterol LDL Cholesterol VLDL Cholesterol HDL Cholesterol Heart Disease Risk Ratio Lipase 184.0 Free T4 TSH 3rd Generation Urine Color Yellow Urine Appearance Clear Urine pH 6.0 Ur Specific [place] 1.021 Urine Protein Negative Urine Glucose (UA) >=500 Urine Ketones Negative Urine Blood Negative Urine Nitrate Negative Urine Bilirubin Negative Urine Urobilinogen < 2.0 H Urine Leukocytes Negative Urine RBC 1 Urine WBC 1 Urine Bacteria Occasional Urine Mucus Occasional Urine Sperm Occasional Ur Culture Indicated? Not indicated 10/01/16 10/01/16 10/01/16 10:07 10:07 10:07 WBC RBC Hgb Hct MCV MCH MCHC RDW Plt Count MPV Neut % (Auto) Lymph % (Auto) [place] % (Auto) Eos % (Auto) Baso % (Auto) Neut # (Auto) Lymph # (Auto) [place] # (Auto) Eos # (Auto) Baso # (Auto) Immature Gran % Nucleated RBC % Immature Gran # Nucleated RBCs # Immature Plt Fraction Sodium Potassium Chloride Carbon Dioxide Anion Gap BUN Creatinine GFR Calculation BUN/Creatinine Ratio Glucose Calculated Osmolality Calcium Magnesium Total Bilirubin AST ALT Alkaline Phosphatase Total Creatine Kinase CK-MB (CK-2) Troponin I 0.017 B-Natriuretic Peptide Total Protein Albumin Globulin Albumin/Globulin Ratio Triglycerides Cholesterol LDL Cholesterol VLDL Cholesterol HDL Cholesterol Heart Disease Risk Ratio Lipase Free T4 0.90 TSH 3rd Generation 5.280 H Urine Color Urine Appearance Urine pH Ur Specific [place] Urine Protein Urine Glucose (UA) Urine Ketones Urine Blood Urine Nitrate Urine Bilirubin Urine Urobilinogen Urine Leukocytes Urine RBC Urine WBC Urine Bacteria Urine Mucus Urine Sperm Ur Culture Indicated? 10/01/16 10/01/16 10/01/16 13:30 18:05 21:45 WBC RBC Hgb Hct MCV MCH MCHC RDW Plt Count MPV Neut % (Auto) Lymph % (Auto) [place] % (Auto) Eos % (Auto) Baso % (Auto) Neut # (Auto) Lymph # (Auto) [place] # (Auto) Eos # (Auto) Baso # (Auto) Immature Gran % Nucleated RBC % Immature Gran # Nucleated RBCs # Immature Plt Fraction Sodium Potassium Chloride Carbon Dioxide Anion Gap BUN Creatinine GFR Calculation BUN/Creatinine Ratio Glucose Calculated Osmolality Calcium Magnesium Total Bilirubin AST ALT Alkaline Phosphatase Total Creatine Kinase 87 74 CK-MB (CK-2) 3.1 2.4 Troponin I < 0.015 < 0.015 B-Natriuretic Peptide Total Protein Albumin Globulin Albumin/Globulin Ratio Triglycerides Cholesterol LDL Cholesterol VLDL Cholesterol HDL Cholesterol Heart Disease Risk Ratio Lipase Free T4 TSH 3rd Generation Urine Color Straw Urine Appearance Clear Urine pH 6.0 Ur Specific [place] 1.013 Urine Protein Negative Urine Glucose (UA) 50 Urine Ketones Negative Urine Blood Negative Urine Nitrate Negative Urine Bilirubin Negative Urine Urobilinogen < 2.0 H Urine Leukocytes Negative Urine RBC 1 Urine WBC <1 Urine Bacteria Urine Mucus Occasional Urine Sperm Ur Culture Indicated? Not indicated 10/02/16 10/02/16 10/02/16 03:42 03:42 03:42 WBC 8.6 RBC 4.69 Hgb 15.0 Hct 42.1 MCV 89.8 MCH 32 MCHC 35.6 RDW 12.5 Plt Count 183 MPV 10.0 Neut % (Auto) 72.3 Lymph % (Auto) 17.0 L [place] % (Auto) 9.9 Eos % (Auto) 0.2 Baso % (Auto) 0.2 Neut # (Auto) 6.2 Lymph # (Auto) 1.5 [place] # (Auto) 0.9 H Eos # (Auto) 0.0 Baso # (Auto) 0.0 Immature Gran % 0.4 Nucleated RBC % 0.0 Immature Gran # 0.03 Nucleated RBCs # 0.00 Immature Plt Fraction 0.0 Sodium 137 Potassium 4.4 Chloride 98 Carbon Dioxide 35 H Anion Gap 8.4 BUN 10 Creatinine 0.80 GFR Calculation 110 BUN/Creatinine Ratio 12.00 Glucose 138 H Calculated Osmolality 273.8 Calcium 9.1 Magnesium 2.3 Total Bilirubin 0.80 AST 25 ALT 24 Alkaline Phosphatase 51 Total Creatine Kinase CK-MB (CK-2) Troponin I B-Natriuretic Peptide 211 H Total Protein 6.5 Albumin 3.7 Globulin 2.8 Albumin/Globulin Ratio 1.3 Triglycerides 80 Cholesterol 150 LDL Cholesterol 75.0 VLDL Cholesterol 16.0 HDL Cholesterol 60 Heart Disease Risk Ratio 2.50 Lipase Free T4 TSH 3rd Generation Urine Color Urine Appearance Urine pH Ur Specific [place] Urine Protein Urine Glucose (UA) Urine Ketones Urine Blood Urine Nitrate Urine Bilirubin Urine Urobilinogen Urine Leukocytes Urine RBC Urine WBC Urine Bacteria Urine Mucus Urine Sperm Ur Culture Indicated? 10/02/16 03:42 WBC RBC Hgb Hct MCV MCH MCHC RDW Plt Count MPV Neut % (Auto) Lymph % (Auto) [place] % (Auto) Eos % (Auto) Baso % (Auto) Neut # (Auto) Lymph # (Auto) [place] # (Auto) Eos # (Auto) Baso # (Auto) Immature Gran % Nucleated RBC % Immature Gran # Nucleated RBCs # Immature Plt Fraction Sodium Potassium Chloride Carbon Dioxide Anion Gap BUN Creatinine GFR Calculation BUN/Creatinine Ratio Glucose Calculated Osmolality Calcium Magnesium Total Bilirubin AST ALT Alkaline Phosphatase Total Creatine Kinase 80 CK-MB (CK-2) 2.9 Troponin I < 0.015 B-Natriuretic Peptide Total Protein Albumin Globulin Albumin/Globulin Ratio Triglycerides Cholesterol LDL Cholesterol VLDL Cholesterol HDL Cholesterol Heart Disease Risk Ratio Lipase Free T4 TSH 3rd Generation Urine Color Urine Appearance Urine pH Ur Specific [place] Urine Protein Urine Glucose (UA) Urine Ketones Urine Blood Urine Nitrate Urine Bilirubin Urine Urobilinogen Urine Leukocytes Urine RBC Urine WBC Urine Bacteria Urine Mucus Urine Sperm Ur Culture Indicated? <Papo Brown - Last Filed: 10/02/16 08:48> Cardiology - PN: Subj Interval history: Cardiology addendum Dramatic improvement today. Speech is clear and fluent. Patient total command today. Telemetry remains benign. MRI scan was negative. Blood pressure is 130/74 in the right arm by me. Carotid duplex showed hemodynamically insignificant disease Regular rhythm no murmur or gallop Chest clear Abdomen benign Neck supple No edema Plan Echo Doppler today Dr. Lara to revisit Aspirin daily Exam (Progress Note) - Constitutional Vitals: Period Temp Pulse Resp BP Sys/Friedman Pulse Ox Last 24 Hr 97.3 F-98.8 F 66-77 16-20 128-164/74-98 97-100 Result/EKG - Labs CBC & BMP: 10/02/16 03:42 10/02/16 03:42 Labs: Laboratory Results - last 24 hr 10/01/16 10/01/16 10/01/16 10:07 10:07 10:07 WBC 7.5 RBC 4.58 Hgb 14.9 Hct 42.0 MCV 91.7 MCH 33 MCHC 35.5 RDW 12.6 Plt Count 181 MPV 9.5 L Neut % (Auto) 78.8 H Lymph % (Auto) 13.1 L [place] % (Auto) 7.3 Eos % (Auto) 0.1 Baso % (Auto) 0.3 Neut # (Auto) 5.9 Lymph # (Auto) 1.0 L [place] # (Auto) 0.6 Eos # (Auto) 0.0 Baso # (Auto) 0.0 Immature Gran % 0.4 Nucleated RBC % 0.0 Immature Gran # 0.03 Nucleated RBCs # 0.00 Immature Plt Fraction Sodium 136 Potassium 4.5 Chloride 98 Carbon Dioxide 33 H Anion Gap 9.5 BUN 14 Creatinine 1.00 GFR Calculation 92 BUN/Creatinine Ratio 14.00 Glucose 199 H Calculated Osmolality 278.0 Calcium 8.6 Magnesium 2.3 Total Bilirubin 0.50 AST 15 ALT 18 Alkaline Phosphatase 55 Total Creatine Kinase CK-MB (CK-2) Troponin I B-Natriuretic Peptide Total Protein 6.8 Albumin 3.9 Globulin 2.9 Albumin/Globulin Ratio 1.3 Triglycerides Cholesterol LDL Cholesterol VLDL Cholesterol HDL Cholesterol Heart Disease Risk Ratio Lipase 184.0 Free T4 TSH 3rd Generation Urine Color Yellow Urine Appearance Clear Urine pH 6.0 Ur Specific [place] 1.021 Urine Protein Negative Urine Glucose (UA) >=500 Urine Ketones Negative Urine Blood Negative Urine Nitrate Negative Urine Bilirubin Negative Urine Urobilinogen < 2.0 H Urine Leukocytes Negative Urine RBC 1 Urine WBC 1 Urine Bacteria Occasional Urine Mucus Occasional Urine Sperm Occasional Ur Culture Indicated? Not indicated 10/01/16 10/01/16 10/01/16 10:07 10:07 10:07 WBC RBC Hgb Hct MCV MCH MCHC RDW Plt Count MPV Neut % (Auto) Lymph % (Auto) [place] % (Auto) Eos % (Auto) Baso % (Auto) Neut # (Auto) Lymph # (Auto) [place] # (Auto) Eos # (Auto) Baso # (Auto) Immature Gran % Nucleated RBC % Immature Gran # Nucleated RBCs # Immature Plt Fraction Sodium Potassium Chloride Carbon Dioxide Anion Gap BUN Creatinine GFR Calculation BUN/Creatinine Ratio Glucose Calculated Osmolality Calcium Magnesium Total Bilirubin AST ALT Alkaline Phosphatase Total Creatine Kinase CK-MB (CK-2) Troponin I 0.017 B-Natriuretic Peptide Total Protein Albumin Globulin Albumin/Globulin Ratio Triglycerides Cholesterol LDL Cholesterol VLDL Cholesterol HDL Cholesterol Heart Disease Risk Ratio Lipase Free T4 0.90 TSH 3rd Generation 5.280 H Urine Color Urine Appearance Urine pH Ur Specific [place] Urine Protein Urine Glucose (UA) Urine Ketones Urine Blood Urine Nitrate Urine Bilirubin Urine Urobilinogen Urine Leukocytes Urine RBC Urine WBC Urine Bacteria Urine Mucus Urine Sperm Ur Culture Indicated? 10/01/16 10/01/16 10/01/16 13:30 18:05 21:45 WBC RBC Hgb Hct MCV MCH MCHC RDW Plt Count MPV Neut % (Auto) Lymph % (Auto) [place] % (Auto) Eos % (Auto) Baso % (Auto) Neut # (Auto) Lymph # (Auto) [place] # (Auto) Eos # (Auto) Baso # (Auto) Immature Gran % Nucleated RBC % Immature Gran # Nucleated RBCs # Immature Plt Fraction Sodium Potassium Chloride Carbon Dioxide Anion Gap BUN Creatinine GFR Calculation BUN/Creatinine Ratio Glucose Calculated Osmolality Calcium Magnesium Total Bilirubin AST ALT Alkaline Phosphatase Total Creatine Kinase 87 74 CK-MB (CK-2) 3.1 2.4 Troponin I < 0.015 < 0.015 B-Natriuretic Peptide Total Protein Albumin Globulin Albumin/Globulin Ratio Triglycerides Cholesterol LDL Cholesterol VLDL Cholesterol HDL Cholesterol Heart Disease Risk Ratio Lipase Free T4 TSH 3rd Generation Urine Color Straw Urine Appearance Clear Urine pH 6.0 Ur Specific [place] 1.013 Urine Protein Negative Urine Glucose (UA) 50 Urine Ketones Negative Urine Blood Negative Urine Nitrate Negative Urine Bilirubin Negative Urine Urobilinogen < 2.0 H Urine Leukocytes Negative Urine RBC 1 Urine WBC <1 Urine Bacteria Urine Mucus Occasional Urine Sperm Ur Culture Indicated? Not indicated 10/02/16 10/02/16 10/02/16 03:42 03:42 03:42 WBC 8.6 RBC 4.69 Hgb 15.0 Hct 42.1 MCV 89.8 MCH 32 MCHC 35.6 RDW 12.5 Plt Count 183 MPV 10.0 Neut % (Auto) 72.3 Lymph % (Auto) 17.0 L [place] % (Auto) 9.9 Eos % (Auto) 0.2 Baso % (Auto) 0.2 Neut # (Auto) 6.2 Lymph # (Auto) 1.5 [place] # (Auto) 0.9 H Eos # (Auto) 0.0 Baso # (Auto) 0.0 Immature Gran % 0.4 Nucleated RBC % 0.0 Immature Gran # 0.03 Nucleated RBCs # 0.00 Immature Plt Fraction 0.0 Sodium 137 Potassium 4.4 Chloride 98 Carbon Dioxide 35 H Anion Gap 8.4 BUN 10 Creatinine 0.80 GFR Calculation 110 BUN/Creatinine Ratio 12.00 Glucose 138 H Calculated Osmolality 273.8 Calcium 9.1 Magnesium 2.3 Total Bilirubin 0.80 AST 25 ALT 24 Alkaline Phosphatase 51 Total Creatine Kinase CK-MB (CK-2) Troponin I B-Natriuretic Peptide 211 H Total Protein 6.5 Albumin 3.7 Globulin 2.8 Albumin/Globulin Ratio 1.3 Triglycerides 80 Cholesterol 150 LDL Cholesterol 75.0 VLDL Cholesterol 16.0 HDL Cholesterol 60 Heart Disease Risk Ratio 2.50 Lipase Free T4 TSH 3rd Generation Urine Color Urine Appearance Urine pH Ur Specific [place] Urine Protein Urine Glucose (UA) Urine Ketones Urine Blood Urine Nitrate Urine Bilirubin Urine Urobilinogen Urine Leukocytes Urine RBC Urine WBC Urine Bacteria Urine Mucus Urine Sperm Ur Culture Indicated? 07/28/17 03:42 WBC RBC Hgb Hct MCV MCH MCHC RDW Plt Count MPV Neut % (Auto) Lymph % (Auto) [place] % (Auto) Eos % (Auto) Baso % (Auto) Neut # (Auto) Lymph # (Auto) [place] # (Auto) Eos # (Auto) Baso # (Auto) Immature Gran % Nucleated RBC % Immature Gran # Nucleated RBCs # Immature Plt Fraction Sodium Potassium Chloride Carbon Dioxide Anion Gap BUN Creatinine GFR Calculation BUN/Creatinine Ratio Glucose Calculated Osmolality Calcium Magnesium Total Bilirubin AST ALT Alkaline Phosphatase Total Creatine Kinase 80 CK-MB (CK-2) 2.9 Troponin I < 0.015 B-Natriuretic Peptide Total Protein Albumin Globulin Albumin/Globulin Ratio Triglycerides Cholesterol LDL Cholesterol VLDL Cholesterol HDL Cholesterol Heart Disease Risk Ratio Lipase Free T4 TSH 3rd Generation Urine Color Urine Appearance Urine pH Ur Specific [place] Urine Protein Urine Glucose (UA) Urine Ketones Urine Blood Urine Nitrate Urine Bilirubin Urine Urobilinogen Urine Leukocytes Urine RBC Urine WBC Urine Bacteria Urine Mucus Urine Sperm Ur Culture Indicated?
[2016-10-02] MEDS: ROSUVASTATIN 20 MG TABLET PO SCH (08:44)
[2016-10-02] MEDS: OMEGA 3 ACID ETHYL ESTERS 1 GM CAPSULE PO SCH (08:44)
[2016-10-02] MEDS ORDERED: ASPIRIN EC 81 MG TABLET PO SCH (09:00)
[2016-10-02] MEDS ORDERED: PANTOPRAZOLE 40 MG TABLET PO SCH (09:00)
--- NOTE | 2016-10-02 11:42 | Neurology Progress Note ---
Neurology - PN : Subjective Interval history: Patient seems to be doing really well this morning. No new problems reported. Mental status back to baseline. His speech is fluent. MRI of the brain is unremarkable for any pathology. Carotid ultrasound is negative. CBC and all other labs looks okay. UA is negative. Exam (Progress Note) - Constitutional Vitals: Period Temp Pulse Resp BP Sys/Friedman Pulse Ox Last 24 Hr 97.3 F-98.8 F 66-77 16-20 128-164/74-95 97-100 Exam: GENERAL: Patient is in no acute distress. NECK: Neck is supple. There is no JVD. No carotid bruits present. No thyroid masses. CVS: First and second heart sounds are normal. There is no S3 present. Regular rate and rhythm. RESPIRATORY: Lungs are clear to auscultation without any rales or rhonchi. ABDOMEN: Soft and non-tender. Bowel sounds are present. There is no hepatosplenomegaly. EXT: There is no palpable edema. Peripheral pulses are present. Skin: No rashes Central Nervous system: General: Alert, awake and Oriented x 3 Speech: Fluent Comprehension: Fair. Some issue with comprehension Facial expressions: Normal Cranial Nerves: CN1/Olfactory: Normal CN II/ Optic: Normal, Visual Smith unreliable CN III, and : NIKKI & EOMI CN V: Normal & intact CN VII: face is symmetric CNVIII: Normal CN XI/X/XI/XII: Intact and Normal Motor: Bulk and Tone is normal. Strength in the right 5/5 Strength in the left 5/5 Sensory: Grossly intact for all the modalities of PP, LT and temp sense Reflexes: 1+ and symmetrical Cerebellar function: Normal finger to nose and heel to fierro testing. Toes: Equivocal Gait: Normal heel to heel and toe to toe and tandem walk. Results - Labs CBC & BMP: 10/02/16 03:42 10/02/16 03:42 Assessment and Plan (1) Change in mental status Status: Acute Assessment and plan: Certainly dementia is in the differential diagnosis. I do not see any signs of infection anywhere We will not perform LP Okay to go home and follow-up with me in 2 weeks We will work him up for dementia as an outpatient Thank you for the consult Current Visit: Yes Specialty Discharge - Follow Up or Referrals Follow up with: Cleveland Lara MD [Physician] - 2 Weeks
[2016-10-02 11:44] VITALS: BP 135/78
--- NOTE | 2016-10-02 14:26 | Discharge Summary ---
Hospital Course - Hospital Course Hospital Course: Corporate Real Estate Manager: Dr. Collazo Corporate Real Estate Manager: Dr. Collazo PCP: Dr. Gillespie SUMMARY Mr. Jensen is a 70 year old male with known history of coronary artery disease, routinely followed by Dr. Collazo. Cardiac risk factors include: Known CAD, dyslipidemia, family history of coronary artery disease (father) and hypertension. Lifetime non-smoker. Patient has past medical history of previous WI (silent). Patient is status post coronary artery bypass grafting in 2007 with WALTON to LAD, SVG to circumflex and SVG to diagonal. Patient was just recently seen in the cardiology clinic by Dr. Collazo June 2016. At that time, he underwent GXT stress test and echocardiogram. He tolerated stress testing well and completed 4 minutes and 51 seconds. 10.5 metastases. Reached 91% of maximum predicted heart rate. Heart rate and blood pressure response was normal. He did not develop any symptoms during the procedure. No ST segment changes or arrhythmias were noted. Unable to locate echocardiogram report. Patient presented to the emergency department October 01, 2016 with complaints of mental status changes and reported that he just did not feel right. He has been having intermittent confusion for a couple of weeks. He also had complaints of intermittent "chest flushing." He denied any jatin complaints of chest pain, heaviness or tightness. He ruled out for WI with cardiac biomarkers negative 3. EKG unchanged. Just recently underwent stress testing which was normal. Reports that he walks 2 miles a day and runs 1/2 mile per day without difficulty. He seems to be stable from a cardiac standpoint. Later that day, his confusion worsened. He could not express his words and cannot recall who the president of [facility] was. No weakness was noted. Patient underwent stat MRI and head CT to rule out acute stroke. Neither of these studies revealed any abnormality. Carotid duplex was performed and did not reveal any hemodynamically significant stenosis. Blood cultures were obtained. UA was negative. No leukocytosis or left shift noted to suggest infectious process. Afebrile. Dr. Lara was consulted to see patient. He did not feel the patient needed lumbar puncture as he had no signs of infection. Today, patient's mental status appears to be back to baseline. He is awake, alert and oriented 3. At this point, etiology of his intermittent confusion is unknown. Suspect dementia. Dr. Lara feels that the patient is stable to be discharged home. He will follow up with him in 2 weeks for further outpatient workup of dementia. Patient will be discharged home on aspirin. Patient's blood pressure has been high this admission. Beta blockade has been initiated. He will be given a prescription for this at discharge. Patient will be given follow-up appoint with Dr. Collazo in 2 weeks with EKG. Patient is anxious for discharge home. Having felt that he has not maximal medical therapy, he will be discharged home in stable condition. Patient verbalizes understanding of discharge instructions and discharge medications. - Time spent with patient Time with patient DS: Greater than 30 minutes Diagnosis - Discharge Diagnosis (1) Change in mental status Status: Acute (2) History of coronary artery disease Status: Chronic (3) History of coronary artery bypass graft Status: Chronic (4) Hyperlipidemia Status: Chronic (5) Hypertension Status: Chronic Specialty Discharge - Follow Up or Referrals Follow up with: Cleveland Lara MD [Physician] - 2 Weeks Jarad Collazo MD [Physician] - 1 Week (WITH EKG ) Discharge Plan - Discharge Data Disposition: Disch To Home/Self Care Condition at Discharge: Stable Discharge Diet: heart healthy, low fat, low cholesterol Activity: resume usual activities as tolerated Hygiene: may shower Weight Bearing at Discharge: weight bear as tolerated Driving: not until seen by doctor Contact your physician if you experience:: fever over 101, Difficulty voiding, Redness or swelling, Nausea/Vomiting, Shortness of breath, Bleeding, pain uncontrolled by pain medications - Discharge Medications New Carvedilol [Coreg] 6.25 mg PO BID #60 tablet Nitroglycerin Sl Tab [Nitrostat] 0.4 mg SL Q5M PRN #1 bottle PRN Reason: Chest Pain Continue Ubidecarenone [Co Q-10] 200 mg PO DAILY Rosuvastatin [Crestor] 20 mg PO DAILY Aspirin EC Tab 325 mg PO DAILY [place]-3/Dha/Epa/Fish Oil [Fish Oil 1,000 mg Softgel] 1 each PO DAILY - Follow Up or Referral Follow Up: Cleveland Lara MD [Physician] - 2 Weeks - Forms/Instructions Exam - Constitutional Vitals: Period Temp Pulse Resp BP Sys/Friedman Pulse Ox Last 24 Hr 97.2 F-98.8 F 60-77 16-20 128-164/74-95 97-100 Exam: General: Appears well with no apparent distress. Pleasant and cooperative. Appears comfortable. HEENT: PERRL, normocephalic, atraumatic. Mucous membranes moist. No jaundice noted. Conjunctiva moist and clear, sclerae anicteric Neck: No JVD/HJR, no thyromegaly or lymphadenopathy noted. No carotid bruit appreciated Cardiac: Regular rate and rhythm. No murmur rub or gallop. Lungs: Clear to auscultation without accessory muscle use to assist the respiratory pattern. Not requiring oxygen. Abdomen: Soft, bowel sounds normoactive. Nontender and nondistended. No abdominal bruit or thrill noted. No masses noted. Extremities: No clubbing, cyanosis noted. No edema noted. Upper extremity pulses 2+. Lower extremity pulses 2+. Capillary refill less than 3 seconds. Skin: No unusual lesions or rashes. No skin breakdown appreciated. Neuro: Awake, alert and oriented 3. Moves all extremities well without hemiparesis or paralysis. No essential tremor is appreciated. Discharge Results Procedures and tests throughout hospitalization: Pending Orders 10/01/16 16:11 Blood Culture Routine 10/03/16 04:00 BMP w/ Mg [Basic Metabolic Panel w/Mg] IN AM CBC [Comp Blood Count Auto Diff] IN AM 10/04/16 04:00 BMP w/ Mg [Basic Metabolic Panel w/Mg] IN AM CBC [Comp Blood Count Auto Diff] IN AM 10/05/16 04:00 BMP w/ Mg [Basic Metabolic Panel w/Mg] IN AM CBC [Comp Blood Count Auto Diff] IN AM Labs on day of discharge: Labs from last 24 hours 10/02/16 10/02/16 10/02/16 03:42 03:42 03:42 WBC RBC Hgb Hct MCV MCH MCHC RDW Plt Count MPV Neut % (Auto) Lymph % (Auto) [place] % (Auto) Eos % (Auto) Baso % (Auto) Neut # (Auto) Lymph # (Auto) [place] # (Auto) Eos # (Auto) Baso # (Auto) Immature Gran % Nucleated RBC % Immature Gran # Nucleated RBCs # Immature Plt Fraction Sodium 137 Potassium 4.4 Chloride 98 Carbon Dioxide 35 H Anion Gap 8.4 BUN 10 Creatinine 0.80 GFR Calculation 110 BUN/Creatinine Ratio 12.00 Glucose 138 H Calculated Osmolality 273.8 Calcium 9.1 Magnesium 2.3 Total Bilirubin 0.80 AST 25 ALT 24 Alkaline Phosphatase 51 Total Creatine Kinase 80 CK-MB (CK-2) 2.9 Troponin I < 0.015 B-Natriuretic Peptide 211 H Total Protein 6.5 Albumin 3.7 Globulin 2.8 Albumin/Globulin Ratio 1.3 Triglycerides 80 Cholesterol 150 LDL Cholesterol 75.0 VLDL Cholesterol 16.0 HDL Cholesterol 60 Heart Disease Risk Ratio 2.50 Urine Color Urine Appearance Urine pH Ur Specific Higgins Urine Protein Urine Glucose (UA) Urine Ketones Urine Blood Urine Nitrate Urine Bilirubin Urine Urobilinogen Urine Leukocytes Urine RBC Urine WBC Urine Mucus Ur Culture Indicated? 10/02/16 10/01/16 10/01/16 03:42 21:45 18:05 WBC 8.6 RBC 4.69 Hgb 15.0 Hct 42.1 MCV 89.8 MCH 32 MCHC 35.6 RDW 12.5 Plt Count 183 MPV 10.0 Neut % (Auto) 72.3 Lymph % (Auto) 17.0 L [place] % (Auto) 9.9 Eos % (Auto) 0.2 Baso % (Auto) 0.2 Neut # (Auto) 6.2 Lymph # (Auto) 1.5 [place] # (Auto) 0.9 H Eos # (Auto) 0.0 Baso # (Auto) 0.0 Immature Gran % 0.4 Nucleated RBC % 0.0 Immature Gran # 0.03 Nucleated RBCs # 0.00 Immature Plt Fraction 0.0 Sodium Potassium Chloride Carbon Dioxide Anion Gap BUN Creatinine GFR Calculation BUN/Creatinine Ratio Glucose Calculated Osmolality Calcium Magnesium Total Bilirubin AST ALT Alkaline Phosphatase Total Creatine Kinase 74 CK-MB (CK-2) 2.4 Troponin I < 0.015 B-Natriuretic Peptide Total Protein Albumin Globulin Albumin/Globulin Ratio Triglycerides Cholesterol LDL Cholesterol VLDL Cholesterol HDL Cholesterol Heart Disease Risk Ratio Urine Color Straw Urine Appearance Clear Urine pH 6.0 Ur Specific [place] 1.013 Urine Protein Negative Urine Glucose (UA) 50 Urine Ketones Negative Urine Blood Negative Urine Nitrate Negative Urine Bilirubin Negative Urine Urobilinogen < 2.0 H Urine Leukocytes Negative Urine RBC 1 Urine WBC <1 Urine Mucus Occasional Ur Culture Indicated? Not indicated 10/01/16 13:30 WBC RBC Hgb Hct MCV MCH MCHC RDW Plt Count MPV Neut % (Auto) Lymph % (Auto) [place] % (Auto) Eos % (Auto) Baso % (Auto) Neut # (Auto) Lymph # (Auto) [place] # (Auto) Eos # (Auto) Baso # (Auto) Immature Gran % Nucleated RBC % Immature Gran # Nucleated RBCs # Immature Plt Fraction Sodium Potassium Chloride Carbon Dioxide Anion Gap BUN Creatinine GFR Calculation BUN/Creatinine Ratio Glucose Calculated Osmolality Calcium Magnesium Total Bilirubin AST ALT Alkaline Phosphatase Total Creatine Kinase 87 CK-MB (CK-2) 3.1 Troponin I < 0.015 B-Natriuretic Peptide Total Protein Albumin Globulin Albumin/Globulin Ratio Triglycerides Cholesterol LDL Cholesterol VLDL Cholesterol HDL Cholesterol Heart Disease Risk Ratio Urine Color Urine Appearance Urine pH Ur Specific [place]gins Urine Protein Urine Glucose (UA) Urine Ketones Urine Blood Urine Nitrate Urine Bilirubin Urine Urobilinogen Urine Leukocytes Urine RBC Urine WBC Urine Mucus Ur Culture Indicated? - Imaging and Cardiology Cardiology Procedure: report reviewed by me Procedure: CT: report reviewed by me, MRI: report reviewed by me, Ultrasound: report reviewed by me DS: Provider Date of admission: 10/01/16 11:26 Primary care physician: . No PCP Attending physician on admission: Papo Brown MD Consults: 10/01/16 15:22 Consult to Physician [CONS] Routine Comment: ams Consulting Provider: Cleveland Lara Person Notified: Dr. Lara's office Date Notified: 10/01/16 Time Notified: 15:29 Discharging clinician: Niyah Alexander NP Expected date of discharge: 10/02/16
--- NOTE | 2016-10-02 17:31 | ECHO Report ---
Jarad Jensen Exam Date: 10/02/2016 09:07 Referring Physician: Technologist: Jacey Lin Age: 70 Ht (in): 73 Wt (lb): 182 Gender: M Exam Location: [facility] Echo Indications: chest discomfort, CAD, [place] STEMI, SOB BP: 143 / 105 HR: 71 Rhythm: Sinus Technical Quality: IMPRESSIONS Left ventricular ejection fraction is estimated at 55%. There is no regional wall motion abnormality. Diastolic parameters are most consistent with grade 2 diastolic dysfunction or impaired relaxation. Tricuspid regurgitation velocities suggest a RVSP of 29 mmHg + RAP. MEASUREMENTS (Male / Female) Normal Values 2D ECHO LV Diastolic Diameter PLAX 4.7 cm 4.2 - 5.9 / 3.9 - 5.3 cm LV Systolic Diameter PLAX 3.4 cm LV Fractional Shortening PLAX 28.1 % IVS Diastolic Thickness 0.7 cm 0.6 - 1.0 / 0.6 - 0.9 cm LVPW Diastolic Thickness 0.8 cm 0.6 - 1.0 / 0.6 - 0.9 cm Aortic Root Diameter 2.6 cm LA Systolic Diameter LX 4.2 cm 3.0 - 4.0 / 2.7 - 3.8 cm DOPPLER TR Peak Velocity 273.0 cm/s TR Peak Gradient 29.8 mmHg FINDINGS Left Ventricle Normal left ventricular cavity size. Left ventricular ejection fraction is estimated at 55%. There is no regional wall motion abnormality. Diastolic parameters are most consistent with grade 2 diastolic dysfunction or impaired relaxation. Right Ventricle Normal right ventricular size and systolic function. Right Atrium Normal right atrial size. Left Atrium Normal left atrial size. Mitral Valve Morphologically normal mitral valve. Trace mitral valve regurgitation. Aortic Valve The aortic valve is trileaflet and has normal motion. Tricuspid Valve Morphologically normal tricuspid valve. Trace tricuspid valve regurgitation. Tricuspid regurgitation velocities suggest a RVSP of 29 mmHg + RAP. Pulmonic Valve Morphologically normal pulmonic valve. Pericardium No pericardial effusion. Aorta Normal size aortic root and proximal ascending aorta. Grace Helton (Electronically Signed) Final Date: 02 October 2016 17:12
== END 2016-10-02 15:07 | disposition home or self-care (01) ==
LOC: N.ED 09:43 → N.EDINP 09:43 → N.TELES 13:30
PROVIDERS: ADMIT Internal Medicine Cardiovascular Disease; ATTEND Internal Medicine Cardiovascular Disease